=== PATIENT | female | born 1990 | race Caucasian/White ===

== ENCOUNTER 2021-02-08 11:56 | Inpatient (IN) | payer OTHER ==
[~2021-02-08] VITALS: Ht 165.1 cm; Wt 85.7 kg
[2021-02-08] MEDS ORDERED: PRENATAL VITAM1 EAC3 PO (16:38)
[2021-02-08 17:09] LABS: HEMOGLOBIN 13.2 gm/dl (12.3-15.3); RED BLOOD COUNT 4.09 M/UL (4.00-5.10); WHITE BLOOD COUNT 15.1 K/UL (4.5-11.0)
[2021-02-08] MEDS ORDERED: DOCUSATE SODIU250 MG PO (20:15)
[2021-02-08] MEDS ORDERED: IBUPROFEN600 MG PO (20:15)
[2021-02-08] MEDS ORDERED: FEROSUL325 MG PO (20:15)
[2021-02-09 06:08] LABS: HEMOGLOBIN 13.5 gm/dl (12.3-15.3)
== END 2021-02-09 21:45 | disposition home or self-care (01) | DRG 807 ==
LOC: GENOP 11:56 → OB 16:15
PROVIDERS: Obstetrics & Gynecology; ADMIT Obstetrics & Gynecology
PROC: 10E0XZZ Delivery of Products of Conception, External Approach (ICD-10-PCS; principal; 2021-02-08)
PROC: 10907ZC Drainage of Amniotic Fluid, Therapeutic from Products of Conception, Via Natural or Artificial Opening (ICD-10-PCS; 2021-02-08)
PROC: 4A1HXCZ Monitoring of Products of Conception, Cardiac Rate, External Approach (ICD-10-PCS; 2021-02-08)
DX: O62.9 Abnormality of forces of labor, unspecified (principal); Z37.0 Single live birth; Z3A.39 39 weeks gestation of pregnancy
CPT/HCPCS: 36415; 51702; 81001; 82800; 83518; 85014; 85018; 85025; J0595; J2405; J2590; J2795; J7120; U0002

== ENCOUNTER 2021-02-12 17:32 | Observation (INO) | payer OTHER ==
[~2021-02-12] VITALS: Ht 165.1 cm; Wt 81.2 kg
[~2021-02-12 17:32] MED LIST: DOCUSATE SODIU250 MG PO; FEROSUL325 MG PO; IBUPROFEN600 MG PO; PRENATAL VITAM1 EAC3 PO
[2021-02-12 18:31] LABS: HEMOGLOBIN 14.1 gm/dl (12.3-15.3); RED BLOOD COUNT 4.37 M/UL (4.00-5.10); WHITE BLOOD COUNT 17.4 K/UL (4.5-11.0)
[2021-02-12 18:49] LABS: BUN/CREATININE RATIO 13 (0-10)
[2021-02-13 05:52] LABS: HEMOGLOBIN 12.7 gm/dl (12.3-15.3); RED BLOOD COUNT 3.96 M/UL (4.00-5.10)
[2021-02-13 05:53] LABS: WHITE BLOOD COUNT 10.7 K/UL (4.5-11.0)
[2021-02-13] MEDS ORDERED: FLAGYL500 MG PO (08:46)
[2021-02-13] MEDS ORDERED: CIPRO500 MG PO (08:46)
== END 2021-02-13 11:08 | disposition home or self-care (01) ==
LOC: ER1 17:32 → CDU 23:42 → M/S 02-13 00:57
PROVIDERS: Physician Assistant; ADMIT Obstetrics & Gynecology
DX: N71.9 Inflammatory disease of uterus, unspecified (principal); Z79.899 Other long term (current) drug therapy; Z20.822 Contact with and (suspected) exposure to COVID-19
CPT/HCPCS: 36415; 71046; 80053; 81001; 83605; 85025; 87040; 96374; 96375; 96376; 99285; G0378; J1956; J2270; J2405; J7120; Q9967; U0002